=== PATIENT | male | born 1955 | race Two or more races ===

== ENCOUNTER → 2019-03-14 | Emergency (ER) | payer OTHER ==
[~2019-03-14] VITALS: Ht 170.2 cm; Wt 83.0 kg
[~2019-03-14] MED LIST: LEVSIN/SL0.125 MG SL; ULTRACET PO
== END | disposition left against medical advice (07) ==
LOC: ER 18:07
DX: Z53.20 Procedure and treatment not carried out because of patient's decision for unspecified reasons (principal)

== ENCOUNTER 2019-08-03 03:28 | Emergency (ER) | payer OTHER ==
[~2019-08-03] VITALS: Ht 170.2 cm; Wt 84.8 kg
[2019-08-03] MEDS ORDERED: OSEL75CA PO (04:58)
[2019-08-03] MEDS ORDERED: TUSNEL LIQUID178 ML PO (04:58)
[2019-08-03] MEDS ORDERED: DOLOGEN CAPLET1 EACH PO (04:58)
== END 2019-08-03 05:04 | disposition home or self-care (01) ==
LOC: ER 03:28
DX: J11.1 Influenza due to unidentified influenza virus with other respiratory manifestations (principal); B33.8 Other specified viral diseases

== ENCOUNTER 2024-11-14 14:53 | Emergency (ER) | payer OTHER ==
[~2024-11-14] VITALS: Ht 170.2 cm; Wt 83.9 kg
[~2024-11-14 14:53] MED LIST changes: +DOLOGEN CAPLET1 EACH PO; +OSEL75CA PO; +TUSNEL LIQUID178 ML PO
[2024-11-14] MEDS ORDERED: CEFTRIAXONE SODIUM 1,000 MG VIAL IM ONE (17:30)
[2024-11-14] MEDS ORDERED: KETOROLAC TROMETHAMINE 60 MG VIAL IM ONE ×2 (17:45→17:49)
[2024-11-14] MEDS ORDERED: CEFTRIAXONE SODIUM 1,000 MG VIAL ONE (17:49)
[2024-11-14 18:32] LABS: BASO % 0.4 % (0.1-1.2); EOS % 0.9 % (0.7-7.0); HEMATOCRIT 42.8 % (40.1-51.0); HEMOGLOBIN 14.3 g/dL (13.7-17.5); LYMPH # 2.29 (1.18-3.74); LYMPH % 20.2 % (19.3-53.1); MEAN CORPUSCULAR HEMOGLOBIN 28.7 pg (25.6-32.2); MONO # 0.97 (0.24-0.82); MONO % 8.6 % (4.7-12.5); NEUT # 7.89 (1.56-6.13); NEUT % 69.6 % (34.0-71.1); PLATELET COUNT 269 K/uL (163-369); RED BLOOD COUNT 4.98 M/uL (4.63-6.08); RED CELL DISTRIBUTION WIDTH 12.6 % (11.6-14.4)
[2024-11-14 18:37] LABS: ERYTHROCYTE SEDIMENTATION RATE 20 mm/hr (0-20)
[2024-11-14] MEDS ORDERED: CEPHALEXIN500 MG PO (20:26)
== END 2024-11-14 20:32 | disposition home or self-care (01) ==
LOC: ER 15:10
PROVIDERS: Preventive Medicine Public Health & General Preventive Medicine
DX: S60.311A Abrasion of right thumb, initial encounter (principal); L08.9 Local infection of the skin and subcutaneous tissue, unspecified
CPT/HCPCS: 36415; 96372; 99282; J0696; J1885

== ENCOUNTER 2025-03-13 19:17 | Emergency (ER) | payer OTHER ==
[~2025-03-13] VITALS: Ht 170.2 cm; Wt 83.9 kg
[~2025-03-13 19:17] MED LIST changes: +CEPHALEXIN500 MG PO
[2025-03-13] MEDS ORDERED: KETOROLAC TROMETHAMINE 30 MG VIAL ONE (20:55)
[2025-03-13] MEDS ORDERED: ORPHENADRINE CITRATE 30 MG/ML AMPUL ONE (20:56)
[2025-03-13] MEDS ORDERED: ORPHENADRINE CITRATE 30 MG/ML AMPUL IM ONE (21:00)
[2025-03-13] MEDS ORDERED: KETOROLAC TROMETHAMINE 30 MG VIAL IM ONE (21:00)
[2025-03-13] MEDS ORDERED: NORFLEX100MG PO (21:20)
[2025-03-13] MEDS ORDERED: DICLOFENAC SODI50 MG PO (21:20)
== END 2025-03-13 22:21 ==
LOC: ER 19:18
DX: M54.50 Low back pain, unspecified (principal)
CPT/HCPCS: 96372; 99282; J1885; J2360